=== PATIENT | male | born 1970 | race Caucasian/White ===

== ENCOUNTER 2016-11-27 14:03 | Emergency (ER) ==
[2016-11-27 14:07] VITALS: TEMP 97.1; BMI 37.8
[2016-11-27 14:10] VITALS: BP 110/77
[2016-11-27] MEDS: MORPHINE 4 MG/ML SYRINGE IM STA (14:47)
[2016-11-27] MEDS: ZOFRAN 4 MG/2 ML IM STA (14:48)
--- NOTE | 2016-11-27 15:24 | CT ---
EXAM: CT right knee without contrast HISTORY: Twisting injury with pop heard. Patient with history of internal fixation hardware from pr evious injury with shattered patella.. COMPARISON: None TECHNIQUE: Serial axial images of the right knee were obtained without contrast. These were viewed in multiple planes. Evaluation is limited due to hardware. FINDINGS: The osseous structures demonstrate no cortical irregularity or displaced fracture. Interm edullary hardware of the distal femur is normal in appearance without visualized fracture with mild osteophyte formation. There is fragmented irregular appearance of the patella consistent with previ ous injury. There is a implanted hardware in the tibial plateau with no evidence of hardware fractu re or loosening. Cement is identified. There is scattered degenerative change and osteophyte forma tion. Soft tissues demonstrate a moderate right knee effusion with a thick wall and mild obscuratio n from adjacent metallic hardware. The soft tissues are otherwise unremarkable. The muscle is unre markable. IMPRESSION: 1. Very limited evaluation due to artifact from implant hardware. No acute abnormality or displace d fracture of the right knee with internal fixation hardware and degenerative disease present consis tent with previous surgery. 2. Internal fixation hardware is in expected location with no displaced fracture, loosening or abno rmality. 3. Moderate thick rimmed right knee effusion may represent chronic changes from previous injury and surgery. 4. Chronic changes from prior patellar comminuted fractures.
--- NOTE | 2016-11-27 15:51 | ED.PDOC ---
General ED Provider: Dr. RICHARD PATEL Chief Complaint: Knee Pain/Injury Stated Complaint: knee pain right Time Seen by Physician: 14:10 (chronic) Mode of Arrival: Wheelchair Information Source: Patient Exam Limitations: No limitations Nursing and Triage Documentation Reviewed and Agree: Yes (seen with nursing staff at all times ) Musculoskeletal Complaint Exam - Knee Pain Complaint/Exam Mechanism of Injury: Reports: No known trauma Onset/Duration: chronic Symptoms Are: Still present Initial Severity: Moderate Current Severity: Moderate Character: Reports: Aching, Throbbing, Spasmodic, Stiffness Alleviating: Reports: Rest, Position Aggravating: Reports: Movement, Weight bearing Associated Signs and Symptoms: Denies: Swelling, Redness, Bruising, Fever, Weakness, Numbness, Tingling Able to Bear Weight: Yes Related History: Reports: Similar episode Septic Arthritis Risk Factors: Reports: None Gout Risk Factors: Reports: >40 years old, Male Related Surgical History: Reports: Right Knee Tenderness: Present: Pre-patellar Review of Systems - Review Of Systems Constitutional: Reports: No symptoms Eyes: Reports: No symptoms Ears, Nose, Mouth, Throat: Reports: No symptoms Respiratory: Reports: No symptoms Cardiac: Reports: No symptoms GI: Reports: No symptoms : Reports: No symptoms Musculoskeletal: Reports: Joint pain (right knee ) Skin: Reports: No symptoms Neurological: Reports: No symptoms Endocrine: Reports: No symptoms Hematologic/Lymphatic: Reports: No symptoms All Other Systems: Reviewed and Negative Past Medical History - Past Medical History Previously Healthy: No Endocrine: Reports: None Cardiovascular: Reports: Hypertension Respiratory: Reports: None Hematological: Reports: None Gastrointestinal: Reports: None Genitourinary: Reports: None Neuro/Psych: Reports: None Musculoskeletal: Reports: Other (knne pain surgery ) Cancer: Reports: None - Surgical History General Surgical History: Reports: Orthopedic - Family History Family History: Reports: Unknown - Social History Smoking Status: Former smoker Hx Substance Use: No Alcohol Screening: Occasionally Physical Exam - Physical Exam Appearance: Well-appearing, No pain distress, Well-nourished Eyes: ADAN, EOMI, Conjunctiva clear ENT: Ears normal, Nose normal, Oropharynx normal Respiratory: Airway patent, Breath sounds clear, Breath sounds equal, Respirations nonlabored Cardiovascular: RRR, Pulses normal, No rub, No murmur GI/: Soft, Nontender, No masses, Bowel sounds normal, No Organomegaly Musculoskeletal: Limited ROM (right knee ) Skin: Warm, Dry, Normal color Neurological: Sensation intact, Motor intact, Reflexes intact, Cranial nerves intact, Alert, Oriented Psychiatric: Affect appropriate, Mood appropriate Interpretation - Radiology Interpretation Radiology Interpretation By: Radiologist Radiology Results: Positive (chronic changes) Critical Care Note - Critical Care Note Total Time (mins): 0 Course - Course Orders, Labs, Meds: Orders Category Date Time Status Morphine Sulfate [Morphine 4 mg/ml Syringe] MEDS 11/27/16 14:22 Discontinued 4 mg IM ONCE STA Ondansetron HCl/Pf [Zofran 4 mg/2 ml] MEDS 11/27/16 14:22 Discontinued 4 mg IM ONCE STA CT KNEE RIGHT WITHOUT CONTRAST Stat RADS 11/27/16 14:22 Completed Medications Discontinued Medications Generic Name Dose Route Start Last Admin Trade Name Freq PRN Reason Stop Dose Admin Morphine Sulfate 4 mg 11/27/16 14:22 11/27/16 14:47 Morphine 4 Mg/Ml Syringe IM 11/27/16 14:23 4 mg ONCE STA Administration Ondansetron HCl 4 mg 11/27/16 14:22 11/27/16 14:48 Zofran 4 Mg/2 Ml IM 11/27/16 14:23 4 mg ONCE STA Administration Vital Signs: Temp Pulse Resp BP Pulse Ox 11/27/16 14:04 97.1 F L 73 16 110/77 96 Departure - Departure Time of Disposition: 15:52 Disposition: HOME SELF-CARE Discharge Problem: Knee pain Instructions: Arthralgia (ED), Knee Pain (ED) Condition: Good Pt referred to PMD for follow-up: No Additional Instructions: Please call your Family Physician as soon as possible to schedule a follow-up appointment. Prescriptions: Hydrocodone/Acetaminophen [[place] 5-325 Tablet] 1 each PO Q6HR PRN #12 tablet PRN Reason: PAIN Allergies/Adverse Reactions: Allergies HIGH BLOOD PRESSUR MEDICATION Adverse Reaction (Uncoded 11/27/16 14:08) Home Medications: Ambulatory Orders Hydralazine HCl 50 mg PO TID 11/27/16 Hydrocodone/Acetaminophen [[place] 5-325 Tablet] 1 each PO Q6HR PRN #12 tablet 11/10 Lisinopril 10 mg PO DAILY 11/27/16 Ranitidine HCl 75 mg PO DAILY 11/27/16
== END 2016-11-27 15:58 | disposition home or self-care (01) ==
LOC: ED 14:03
DX: M25.561 Pain in right knee (principal)
CPT/HCPCS: 96372; 99283

== ENCOUNTER 2016-12-09 15:56 | Outpatient (CLI) ==
[2016-12-09 16:05] LABS: BASOPHILS % (AUTO) 0.4 % (0.0-3.0); EOSINOPHILS # (AUTO) 0.1 K/ul (0.0-0.7); EOSINOPHILS % (AUTO) 1.8 % (0.0-7.0); HEMOGLOBIN 15.8 g/dl (14.0-18.0); IMMATURE GRANULOCYTE % (AUTO) 0.4 % (0.0-5.0); LYMPHOCYTES # (AUTO) 2.1 K/uL (0.60-3.4); MEAN CORPUSCULAR HEMOGLOBIN 28.2 pg (27.0-31.0); MEAN CORPUSCULAR HGB CONC 36.7 (31.8-35.4); MEAN CORPUSCULAR VOLUME 76.6 fl (80.0-94.0); MONOCYTES # (AUTO) 0.6 K/uL (0.4-2.0); MONOCYTES % (AUTO) 7.7 (0-10); NEUTROPHILS # (AUTO) 4.5 K/ul (2.0-6.9); NEUTROPHILS % (AUTO) 61.7; PLATELET COUNT 280 10^3/uL (140-440); RED BLOOD COUNT 5.61 10^6/ul (4.70-6.10); WHITE BLOOD COUNT 7.36 K/ul (4.2-10.2)
[2016-12-09 16:45] LABS: ALBUMIN 3.9 g/dL (3.4-5.0); ALBUMIN/GLOBULIN RATIO 1.26; ANION GAP 14.5; BILIRUBIN,TOTAL 0.53 mg/dL (0.00-1.20); BUN/CREATININE RATIO 14.77; CALCIUM 8.9 mg/dL (8.2-10.2); CHOL/HDL RATIO 5.9 (4.5-6.4); CREATININE 1.76 mg/dL (0.60-1.10)
[2016-12-09 16:47] LABS: POTASSIUM 2.5 mmol/L (3.5-5.1)
== END 2016-12-09 15:57 | disposition home or self-care (01) ==
LOC: LAB 15:56
PROVIDERS: ATTEND Nurse Practitioner Family
DX: I10 Essential (primary) hypertension (principal); F41.8 Other specified anxiety disorders; K21.9 Gastro-esophageal reflux disease without esophagitis; Z82.49 Family history of ischemic heart disease and other diseases of the circulatory system
CPT/HCPCS: 36415; 80053; 80061; 84443; 85025; 93005; 93010

== ENCOUNTER 2017-02-13 14:42 | Outpatient (CLI) | END 2017-02-13 14:43 | disposition home or self-care (01) | LOC: LAB 14:42 | PROVIDERS: ATTEND Nurse Practitioner Family | DX: E87.6 Hypokalemia (principal) | CPT/HCPCS: 36415; 83735; 84132 ==

== ENCOUNTER 2017-02-18 14:42 | Emergency (ER) ==
[2017-02-18 14:46] VITALS: BP 211/131; TEMP 97.5; BMI 35.2
--- NOTE | 2017-02-18 15:20 | ED.PDOC ---
General ED Provider: Dr. RICHARD PATEL Chief Complaint: Foot Pain/Injury Stated Complaint: right foot pain Time Seen by Physician: 14:43 Mode of Arrival: Walk-In Information Source: Patient Exam Limitations: No limitations [facility] Nursing and Triage Documentation Reviewed and Agree: Yes (chronic gout) Musculoskeletal Complaint Exam - Ankle/Foot Complaint/Exam Location of Injury: Reports: Right, Ankle, Toe #1 Mechanism of Injury: Reports: No known trauma Symptoms Are: Reports: Still present Onset of Pain: Reports: Days Initial Severity: Moderate Current Severity: Moderate Location: Reports: Diffuse Character: Reports: Sharp, Throbbing Alleviating: Reports: None Aggravating: Reports: None Able to Bear Weight: Yes (chronic gout) Associated Signs and Symptoms: Reports: Swelling Related History: Reports: Similar episode Gout Risk Factors: Reports: >40 years old, Male, HTN, Alcohol abuse, Obesity Related Surgical History: Reports: None Achilles Tendon Abnormality: No Tenderness: Present: Midfoot, Metatarsals Differential Diagnosis: Gout Review of Systems - Review Of Systems Constitutional: Reports: No symptoms Eyes: Reports: No symptoms Ears, Nose, Mouth, Throat: Reports: No symptoms Respiratory: Reports: No symptoms Cardiac: Reports: No symptoms GI: Reports: No symptoms : Reports: No symptoms Musculoskeletal: Reports: Gout Skin: Reports: No symptoms Neurological: Reports: No symptoms Endocrine: Reports: No symptoms Hematologic/Lymphatic: Reports: No symptoms All Other Systems: Reviewed and Negative Past Medical History - Past Medical History Previously Healthy: No Endocrine: Reports: None Cardiovascular: Reports: Hypertension Respiratory: Reports: None Hematological: Reports: None Gastrointestinal: Reports: None Genitourinary: Reports: Kidney stones Neuro/Psych: Reports: CVA Musculoskeletal: Reports: Gout, Other (knne pain surgery ) Cancer: Reports: None - Surgical History General Surgical History: Reports: Orthopedic - Family History Family History: Reports: Unknown - Social History Smoking Status: Former smoker Hx Substance Use: No Alcohol Screening: Occasionally Physical Exam - Physical Exam Appearance: Well-appearing, No pain distress, Well-nourished Eyes: ADAN, EOMI, Conjunctiva clear ENT: Ears normal, Nose normal, Oropharynx normal Respiratory: Airway patent, Breath sounds clear, Breath sounds equal, Respirations nonlabored Cardiovascular: RRR, Pulses normal, No rub, No murmur GI/: Soft, Nontender, No masses, Bowel sounds normal, No Organomegaly Musculoskeletal: Normal strength, ROM intact, No edema, No calf tenderness Skin: Warm, Dry, Normal color Neurological: Sensation intact, Motor intact, Reflexes intact, Cranial nerves intact, Alert, Oriented Psychiatric: Affect appropriate, Mood appropriate Critical Care Note - Critical Care Note Total Time (mins): 0 Course - Course Vital Signs: Temp Pulse Resp BP Pulse Ox 02/18/17 14:43 97.5 F L 58 L 14 211/131 H 95 Departure - Departure Time of Disposition: 15:24 (pt walking and talking. no deficit. BP tolerated. ) Disposition: HOME SELF-CARE Discharge Problem: Gout attack Instructions: Gout (ED) Condition: Good Pt referred to PMD for follow-up: Yes Additional Instructions: Please call your Family Physician as soon as possible to schedule a follow-up appointment. Allergies/Adverse Reactions: Allergies HIGH BLOOD PRESSUR MEDICATION Adverse Reaction (Uncoded 02/18/17 14:46) Home Medications: Ambulatory Orders Lisinopril 10 mg PO DAILY 11/27/16 Oxycodone HCl/Acetaminophen [Percocet 7.5-325 Mg Tablet] 1 each PO TID 12/08/16
[2017-02-18] MEDS ORDERED: ZESTRIL PO STA (15:25)
== END 2017-02-18 17:10 | disposition home or self-care (01) ==
LOC: ED 14:42
DX: M10.9 Gout, unspecified (principal); I10 Essential (primary) hypertension
CPT/HCPCS: 99283